=== PATIENT | male | born 1945 | race Caucasian/White ===

== ENCOUNTER 2024-01-30 12:21 | Observation (INO) ==
--- NOTE | 2024-01-19 11:31 | Anesthesiology Consultation ---
Date of Service January 19, 2024 Assessment & Plan (1) Encounter for pre-operative examination: - hyperkalemia at 5.5: case discussed in detail with Dr. Gomez who advised patient have repeat K prior to surgery-repeat K 01/20/24 ordered by the [place] was WNL at 4.9. Two messages left requesting patient return call. Dr. Mason Cordova office listed by patient as PCP advised patient has not been seen in their office since 2012. Labs were ordered by Ximena Renee with the [facility] in [place] P Satish Coronel with [place] office advised that they will contact patient who prefers to use their portal to have BMP updated prior to surgery. - Per meat soaker on 01/19/24: No known infectious disease contacts, current infectious disease symptoms in past 10 days or COVID positive test result in the past 30 days. Chart Review Chart Review: Acceptable Risk for Surgery and Patient NOT seen in Pre Admission Testing History Surgery Operation Date: 01/30/24 15:40 Proposed Procedures p TURP (Transurethral Resection Prostate) - Francois Castañeda DO Height/Weight Height: 5 ft 10 in Weight: 72.575 kg Allergies Allergy/AdvReac Type Severity Reaction Status Date / Time bacitracin Allergy Mild Swelling Verified 01/19/24 09:11 [From Neosporin of the Eye ([id number])] neomycin Allergy Mild Swelling Verified 01/19/24 09:11 [From Neosporin of the Eye ([id number])] polymyxin B Allergy Mild Swelling Verified 01/19/24 09:11 [From Neosporin of the Eye ([id number])] Medications Home Medications Medication Instructions Recorded Confirmed Last Taken amlodipine 10 mg tablet 10 mg PO QPM 12/26/23 01/19/24 Unknown Past Medical History Medical History (Updated 01/19/24 @ 11:23 by Graica Iqbal PA-C) Hypertension controlled with medication Retention of urine, unspecified Weight loss, unintentional states has lost approx. 30 pounds since august 2023 due to current issues of urinary retention Past Surgical History Surgical History (Updated 01/19/24 @ 09:24 by Tianna Schultz) History of open reduction and internal fixation (ORIF) procedure left ankle History of prostate surgery (2009) "[facility]" Hx of appendectomy as a child Hx of colonoscopy Social History Smoking Status: Former smoker Do You Dip or Chew Tobacco: No Smoking End Date: quit 20 years ago Hx Alcohol Use: No Hx Substance Use: No substance use type: does not use Testing Laboratory Results 01/13/24 WBC: 8.4 H/H: 12/ PLATELETS: 463,000 SODIUM: 140 POTASSIUM: 5.5 CHLORIDE: 108 CO2: 23 BUN: 34 CREATININE: 1.8 UA: 1+ blood, 2+ protein, positive nitrite, many bacteria Urine culture: > 100,000 cfu/ml Electrocardiogram Date: 01/13/24 NSR, rate 70 bpm Chest X-Ray Date: 01/13/24 No evidence of acute cardiopulmonary disease.
[~2024-01-30 12:21] MED LIST: DEXAMETHASONE SOD INJ 4 MG/ML VIAL ONE; LIDOCAINE 2% 2 ML VIAL/AMP(20MG/ML) INFIL ONE; ONDANSETRON INJ 2 MG/ML 2 ML VIAL ONE; PROPOFOL IV EMULSION 10 MG/ML 20 ML VIAL IV ONE; fentaNYL citrate PF 100 MCG/2 ML VIAL ONE
--- NOTE | 2024-01-30 12:35 | History & Physical Bridge Note ---
Date of Service January 30, 2024 History & Physical Bridge Note I have examined the patient, reviewed the History & Physical and in the interval since the performance of the History & Physical I have noted the following changes of clinical significance: no changes noted
[2024-01-30] MEDS ORDERED: MoRPHine SULFATE 2 MG/ML CARP IV PRN (12:56)
[2024-01-30] MEDS ORDERED: PHENAZOPYRIDINE HCL 200 MG TAB PO PRN (12:56)
[2024-01-30] MEDS ORDERED: ONDANSETRON INJ 2 MG/ML 2 ML VIAL IV PRN ×2 (12:56→13:01)
[2024-01-30] MEDS: LR 15ML/HR IV SCH (12:58)
[2024-01-30] MEDS: ceFAZolin 2000MG 2,000 MG/15 ML SYR IV SCH ×2 (13:00→18:05)
[2024-01-30] MEDS ORDERED: fentaNYL citrate PF 100 MCG/2 ML VIAL IV PRN (13:01)
[2024-01-30] MEDS ORDERED: ePHEDrine sulfate 50 MG/ML AMP IV PRN (13:01)
[2024-01-30] MEDS ORDERED: ATROPINE SULFATE 0.1 MG/ML 10ML SYR IV PRN (13:01)
[2024-01-30] MEDS ORDERED: ePHEDrine sulfate 50 MG/5 ML SYR ONE (14:09)
--- NOTE | 2024-01-30 14:40 | Operative Report ---
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 Specimens Prostate adenoma. Drains [address]ter Anesthesia Type General Complications none Disposition Disposition: Recovery Room Indications Patient with obstruction due to prostate enlargement. Risks and benefits discussed at length. Description of Procedure Patient was consented and brought back to the operating room. Patient was placed under anesthesia in the supine position and moved to the dorsal lithotomy position. Patient was prepped and draped in the regular sterile fashion. A time out was completed. A 30degree Cystoscope was placed into the bladder and the entire bladder was examined. The UO's were identified as well as the bladder neck, trigone, dome, and the other important landmarks. The prostatic urethra and large lobes/adenoma was assessed and the veru and bladder neck identified and area/size was assessed. The resection scope was placed and the fine bipolar loop was selected. Starting at the 5 and 7 o'clock positions, a channel was created from bladder neck to the veru. Severe nodular regrowth was noted throughout. A considerable amount had projected into the bladder with significant edema. Extensive resection was necessary to debulk the majority of the regrowth from the central channel. Resection then started from the 1 and 11 o'clock position down to capsule fibers. This was resected down along the capsule to the channel. Extensive tissue was resected. The Specimen was removed and sent for analysis. The resection bed and any bleeding areas were fulgurated/cauterized and the entire area inspected. All bleeding was controlled. The bladder was inspected a final time. The bladder was emptied and irrigated. All specimen and debris was removed. The scope was removed with the bladder partially full. A catheter was placed and balloon elevated. This was easily irrigated. The patient was cleaned, aroused from anesthesia, and transferred to the pacu in stable condition having tolerated the procedure well with no complications. I was present and participated in all aspects of the procedure. The patient will be monitored in the PACU until transferred. Plan to maintain catheter for approx 10-14 days. Will followup with pathology in approx 1-2 weeks later. Will observe overnight. I attest to the content of the Intraoperative Record and any orders documented therein. Any exceptions are noted below.
--- NOTE | 2024-01-30 14:54 | Anesthesiology Progress Note ---
Date of Service January 30, 2024 Anesthesia Post Procedure Vital Signs Vital Signs: Temp Pulse Resp BP Pulse Ox O2 Del Method 01/30/24 12:40 36.7 C 84 18 163/85 H 100 Room Air Transfer of Care Handoff Completed per policy Notes Mental Status: alert / awake / arousable and participated in evaluation Patient Amnestic to Procedure: Yes Nausea / Vomiting: adequately controlled Pain: adequately controlled Airway Patency, RR, SpO2: stable & adequate BP & HR: stable & adequate Hydration State: stable & adequate Anesthetic Complications: no major complications apparent and Pt Satisfied with anesthetic care
[2024-01-30] MEDS: oxyCODONE/ACETAMINOPHEN 5mg/325mg TAB PO PRN (17:10)
[2024-01-30 17:23] LABS: Hemoglobin 11.2 g/dl (14.0-18.0); Mean Corpuscular Hemoglobin 31.4 pg (25.0-34.0); Mean Corpuscular Hgb Conc 32.9 g/dL (32.0-36.0); Mean Corpuscular Volume 95.2 fL (80.0-100.0); Mean Platelet Volume 8.8 fL (9.4-12.4); Platelet Count 341 K/uL (130-400); RDW Coefficient of Variation 13.3 % (11.5-14.5); RDW Standard Deviation 47.2 fL (36.4-46.3); Red Blood Count 3.57 M/uL (4.70-6.10); White Blood Count 14.76 K/ul (4.8-10.8)
[2024-01-30 17:44] LABS: Albumin Globulin Ratio 1.8 (0.9-2); BUN Creatinine Ratio 18.2 (10-20); Bilirubin,Total 0.5 mg/dl (0.2-1.0); Calcium 8.9 mg/dl (8.6-10.3); Creatinine Clr Calc Pharmacy 41.5 ml/min; Globulin 2.2 gm/dl (2.5-4.0); Potassium 3.9 mmol/L (3.5-5.1); Total Protein 6.2 gm/dl (6.0-8.3)
[2024-01-30 17:45] LABS: Basophils # (auto) 0.04 K/uL (0.00-0.20); Basophils % (auto) 0.3 %; Eosinophils # (auto) 0.04 K/uL (0.00-0.50); Eosinophils % (auto) 0.3 %; Immature Granulocytes # (auto) 0.08 K/uL (0.01-0.20); Immature Granulocytes % (auto) 0.5 %; Lymphocytes # (auto) 0.71 K/uL (1.20-3.40); Lymphocytes % (auto) 4.8 %; Monocytes # (auto) 0.18 K/uL (0.11-0.59); Monocytes % (auto) 1.2 %; Neutrophils # (auto) 13.71 K/uL (1.40-6.50); Neutrophils % (auto) 92.9 %
[2024-01-30] MEDS: DOCUSATE SODIUM 100 MG CAP PO SCH (21:47)
[2024-01-30] MEDS: amLODIPine BESYLATE 5 MG TAB PO SCH (21:47)
[2024-01-31 03:49] VITALS: TEMP 98.1
[2024-01-31 07:12] VITALS: BP 114/71; PULSE 74; RESP 16; O2SAT 97
--- NOTE | 2024-01-31 07:55 | Urology Progress Note ---
Date of Service January 31, 2024 Assessment & Plan (1) Acute urinary retention: Plan: - Pt POD#1 s/p TURP with Dr. Castañeda - Doing well, progressing as expected - Afebrile, hemodynamically stable - Tolerating PO diet - 3 way Michael catheter patent and draining minimally pink-tinged urine with CBI on slow - CBI clamped this morning, nursing aware - will reassess later this AM - Maintain Michael catheter upon discharge for 10 to [address] Castañeda - Anticipate home with Michael catheter later today presuming urine appropriate and he continues to progress as expected - Expected clinical course reviewed, all questions answered - Will arrange outpatient follow-up with our service for voiding trial Admission and Anticipated Discharge Date Admission Date: January 30, 2024 Subjective Patient seen examined at bedside. No acute issues overnight. Urine is relatively clear with minimal pink tinge with CBI on slow. CBI clamped at bedside. Tolerating diet. No fever or chills. No discomfort at present. Review of Systems Constitutional: as per Subjective / HPI Genitourinary: + as per Subjective / HPI Physical Exam Constitutional: well developed and well nourished; no acute distress Respiratory: normal respiratory effort; no respiratory distress and no labored breathing Gastrointestinal (Abdomen): Inspection/Auscultation: abdomen normal to inspection Musculoskeletal: Head/Neck/Chest: normocephalic Neurologic: moves all extremities and awake Psychiatric: Orientation: alert and oriented x 3 Genitourinary: Urine is relatively clear with minimal pink tinge with CBI on slow. CBI clamped at bedside. Results & Data Vital Signs (Past 12 Hours) Vital Signs Temp Pulse Resp BP Pulse Ox O2 Del Method 01/31/24 07:10 36.7 C 74 16 114/71 97 Room Air 01/31/24 03:48 36.7 C 69 18 96/60 L 98 Room Air 01/30/24 23:11 36.3 C L 69 18 100/62 98 Room Air PG Care Time/CCT Total # of Minutes Spent Total Time Spent with Patient: Total time spent is greater than 50% in coordination of care (as documented) at patient's floor/unit and/or counseling patient: Coding Level of Care Code None Diagnoses Acute urinary retention R33.8
--- NOTE | 2024-02-01 10:21 | Discharge Summary ---
Date of Service February 01, 2024 Admission HPI Per Admitting Provider Patient with BPH with obstruction and urinary retention here for transurethral resection of prostate. Principal Diagnosis BPH with obstruction Discharge Exam Constitutional well developed and well nourished; no acute distress Respiratory normal respiratory effort; no respiratory distress and no labored breathing Gastrointestinal (Abdomen) Inspection/Auscultation: abdomen normal to inspection Musculoskeletal Head/Neck/Chest: normocephalic Neurologic moves all extremities and awake Psychiatric Orientation: alert and oriented x 3 Genitourinary Michael draining pink to light red with CBI clamped Discharge Data Allergies Allergy/AdvReac Type Severity Reaction Status Date / Time bacitracin Allergy Mild Swelling Verified 01/30/24 12:38 [From Neosporin of the Eye ([id number])] neomycin Allergy Mild Swelling Verified 01/30/24 12:38 [From Neosporin of the Eye ([id number])] polymyxin B Allergy Mild Swelling Verified 01/30/24 12:38 [From Neosporin of the Eye ([id number])] Procedures Performed Operation Date: 01/30/24 14:20 Actual Procedures p Transurethral Resection Prostate(Not Applicable) - Francois Castañeda, DO Hospital Course (1) Acute urinary retention: - Pt POD#1 s/p TURP with Dr. Castañeda - Doing well, progressing as expected - Afebrile, hemodynamically stable - Tolerating PO diet - 3 way Michael catheter patent and draining minimally pink-tinged urine with CBI on slow - CBI clamped this morning, nursing aware - will reassess later this AM - Maintain Michael catheter upon discharge for 10 to [address] Castañeda - Anticipate home with Michael catheter later today presuming urine appropriate and he continues to progress as expected - Expected clinical course reviewed, all questions answered - Will arrange outpatient follow-up with our service for voiding trial Total Time Total Time Spent Total Time Spent (In Minutes): 29 Discharge Plan Discharge Items Patient Disposition: Home - Self-Care Reason For Visit: BPH WITH OBSTRUCTION Discharge Diagnosis: BPH with obstruction Activity: Per Instructions section Lifting: No more than 25 pounds Bathing Comment: Okay to shower after discharge, no tub bath or soaking Sexual Activity: Wait until after follow-up appointment Exercise/Sports: Wait until after follow-up appointment Driving/Machine Use: No driving if taking prescription pain medication Non-emergency contact: Surgeon and Urologist Call non-emergency contact if: your pain is not controlled and your temperature is above 101 Follow-up/Referrals: Mason Cordova, [Primary Care Provider] - Diet: Regular Addtl Attending Provider Instructions: Please take all medications as prescribed and keep all follow-ups as scheduled. Please call our office at [phone] with any questions, concerns or need to reschedule appointments for any reason. We are happy to assist you. Tips for your recovery at home: Dont be alarmed by brownish or reddish blood or clots in your urine. This is a result of the procedure. This may occur off and on for weeks to months after the procedure but should continue to improve. Drink plenty of fluids during the day (enough to keep your urine very light colored). This will help keep a healthy flow of urine. Do not lift >25 lbs until your followup Avoid constipation. Please use a stool softener (Colace) for the first two weeks after your procedure Be sure to finish the antibiotics as prescribed. If you go home with a catheter, please wash tubing where it enters your body twice daily with mild soap (Dove or Dial). Once your catheter is removed, expect some blood in your urine and some burning when you urinate. You should have an appointment to have this removed, if you do not please call our office to arrange. Pending Studies at Discharge: Yes (pathology) Stand-Alone Forms: [facility] [employer], Smoking Cessation Medications and DC Order Prescriptions: New cephalexin 500 mg capsule 500 mg PO BID 7 Days Qty: 14 0RF Continued amlodipine 10 mg tablet 10 mg PO QPM Discharge Orders: Discharge Order (Routine); Ordered 01/31/24 Ordered By: Rosalia Zepeda Admission Data Admit Date/Time: 01/30/24 13:06 Attending Provider: Francois Castañeda Admit Provider: Francois Castañeda Primary Care Provider: Masno Cordova Other Interventions: Discharge Summary Assessment (RN) Last Done: 01/31/24 11:43 Coding Level of Care Code 18349 IN/OBS DISCH 30 MIN/LESS Diagnoses Acute urinary retention R33.8
--- NOTE | 2024-02-02 07:56 | Discharge Summary ---
Date of Service February 02, 2024 Admission HPI Per Admitting Provider Patient with BPH with obstruction and urinary retention here for transurethral resection of prostate. Admission Exam Per Admitting Provider See H&P Principal Diagnosis Outlet obstruction Discharge Exam General: Alert in no acute distress. HEENT: Normocephalic Atraumatic. Inspection normal. Psychologic: Normal affect. Skin: Deloit and Dry. No rashes or visible lesions. Abdomen: Soft Non-distended. No rebound or guarding. Discharge Data Allergies Allergy/AdvReac Type Severity Reaction Status Date / Time bacitracin Allergy Mild Swelling Verified 01/30/24 12:38 [From Neosporin of the Eye ([id number])] neomycin Allergy Mild Swelling Verified 01/30/24 12:38 [From Neosporin of the Eye ([id number])] polymyxin B Allergy Mild Swelling Verified 01/30/24 12:38 [From Neosporin of the Eye ([id number])] Procedures Performed Operation Date: 01/30/24 14:20 Actual Procedures p Transurethral Resection Prostate(Not Applicable) - Francois Castañeda, DO Hospital Course (1) Acute urinary retention: - Pt POD#1 s/p TURP with Dr. Castañeda - Doing well, progressing as expected - Afebrile, hemodynamically stable - Tolerating PO diet - 3 way Michael catheter patent and draining minimally pink-tinged urine with CBI on slow - CBI clamped this morning, nursing aware - will reassess later this AM - Maintain Michael catheter upon discharge for 10 to [address] Castañeda - Anticipate home with Michael catheter later today presuming urine appropriate and he continues to progress as expected - Expected clinical course reviewed, all questions answered - Will arrange outpatient follow-up with our service for voiding trial Total Time Total Time Spent Total Time Spent (In Minutes): 10 minutes Total Time Includes: Examination of the Patient, Discharge Planning, Medication Reconciliation and Communication With Other Providers Discharge Plan Discharge Items Patient Disposition: Home - Self-Care Reason For Visit: BPH WITH OBSTRUCTION Discharge Diagnosis: BPH with obstruction Activity: Per Instructions section Lifting: No more than 25 pounds Bathing Comment: Okay to shower after discharge, no tub bath or soaking Sexual Activity: Wait until after follow-up appointment Exercise/Sports: Wait until after follow-up appointment Driving/Machine Use: No driving if taking prescription pain medication Non-emergency contact: Surgeon and Urologist Call non-emergency contact if: your pain is not controlled and your temperature is above 101 Follow-up/Referrals: Mason Cordova, [Primary Care Provider] - Diet: Regular Addtl Attending Provider Instructions: Please take all medications as prescribed and keep all follow-ups as scheduled. Please call our office at [phone] with any questions, concerns or need to reschedule appointments for any reason. We are happy to assist you. Tips for your recovery at home: Dont be alarmed by brownish or reddish blood or clots in your urine. This is a result of the procedure. This may occur off and on for weeks to months after the procedure but should continue to improve. Drink plenty of fluids during the day (enough to keep your urine very light co lored). This will help keep a healthy flow of urine. Do not lift >25 lbs until your followup Avoid constipation. Please use a stool softener (Colace) for the first two weeks after your procedure Be sure to finish the antibiotics as prescribed. If you go home with a catheter, please wash tubing where it enters your body twice daily with mild soap (Dove or Dial). Once your catheter is removed, expect some blood in your urine and some burning when you urinate. You should have an appointment to have this removed, if you do not please call our office to arrange. Pending Studies at Discharge: Yes (pathology) Stand-Alone Forms: [facility] [employer], Smoking Cessation Medications and DC Order Prescriptions: New cephalexin 500 mg capsule 500 mg PO BID 7 Days Qty: 14 0RF Continued amlodipine 10 mg tablet 10 mg PO QPM Discharge Orders: Discharge Order (Routine); Ordered 01/31/24 Ordered By: Rosalia Zepeda Admission Data Admit Date/Time: 01/30/24 13:06 Attending Provider: Francois Castañeda Admit Provider: Francois Castañeda Primary Care Provider: Mason Cordova Other Interventions: Discharge Summary Assessment (RN) Last Done: 01/31/24 11:43 Coding Level of Care Code 47677 IN/OBS DISCH 30 MIN/LESS Diagnoses Acute urinary retention R33.8
== END 2024-01-31 15:00 | disposition home or self-care (01) ==
LOC: 3E 12:21 → ASU 12:21
DX: Z79.899 Other long term (current) drug therapy; R33.9 Retention of urine, unspecified; Z91.048 Other nonmedicinal substance allergy status; Z87.891 Personal history of nicotine dependence; I10 Essential (primary) hypertension; N32.0 Bladder-neck obstruction